=== PATIENT | male | born 1965 ===

== ENCOUNTER 2024-10-29 10:04 | Emergency (ER) | payer OTHER ==
[2024-10-29] MEDS: Acetaminophen 500 MG Tab PO ONE (10:48)
[2024-10-29] MEDS: Diphtheria,Pertussis(Acell),Tetanus Vaccine 0.5 ML Syringe IM ONE (12:00)
[2024-10-29] MEDS: Lidocaine 1% 20 ML MDV INJECT ONE (12:01)
[2024-10-29] MEDS ORDERED: Propofol 200 MG/20 ML SDV ONE (14:29)
== END 2024-10-29 16:33 ==
LOC: JP.ED 10:04
DX: S61.111A Laceration without foreign body of right thumb with damage to nail, initial encounter (principal); Z23 Encounter for immunization; X50.9XXA Other and unspecified overexertion or strenuous movements or postures, initial encounter
CPT/HCPCS: 73130; 90471; 90715; 99156; 99157; 99285; A9270; J2704; 99284